=== PATIENT | female | born 1960 | race Caucasian/White ===

== ENCOUNTER 2016-11-10 17:47 | Emergency (ER) | payer OTHER ==
[~2016-11-10] VITALS: Ht 165.1 cm; Wt 61.2 kg
--- NOTE | 2016-11-10 17:48 | NUR ---
ARRIVAL PT ARRIVED VIA WHEELCHAIR TO ER 1 C/O [place] BITE. PT CALLED AHEAD STATING PT WAS BIT BY [facility] [place] AND [facility] MARKED SITE AND AREA OF SWELLING. UPON ARRIVAL TO ER NO SWELLING OR PUNCTURE SITE NOTED TO PT ANKLE. PT DENIES ANY PAIN. NO ACUTE DISTRESS NOTED. EPD AT BEDSIDE.
[2016-11-10] MEDS ORDERED: [UNRECOGNIZED DRUG - OTHER] ONE (17:50)
[2016-11-10 17:58] VITALS: BP 146/84
--- NOTE | 2016-11-10 18:07 | ER.PDOC ---
General Chief Complaint: Animal Bite Stated Complaint: POSS SNAKE BITE Time seen by MD: 17:45 Source: patient Exam Limitations: no limitations History of Present Illness Initial Comments Pt who saw a rattle snake, but, is not sure that she was bitten by it Onset: just prior to arrival Where: street Animal: other (snake) Animal Immunizations: UTD Animal Disposition: Animal Captured Context of Attack: "unprovoked" attack Severity of Injury: other (touched) Injury Location: lower extremity Past Medical History Medical History: no pertinent history Surgical History: appendectomy, cholecystectomy LMP (females 10-50): postmenopause Social History Smoking: less than 1 pack/day Alcohol Use: occassionally Drug Use: none Review of Systems Constitutional: see HPI Eyes: see HPI Ears: see HPI Nose: see HPI Mouth: see HPI Throat: see HPI Respiratory: see HPI Cardiovascular: see HPI Gastrointestinal: see HPI Genitourinary: see HPI Musculoskeletal: see HPI Skin: see HPI Psychiatric/Neurological: see HPI Physical Exam General Appearance: alert, no distress Skin: intact Neuro/Vascular/Tendon: no vascular compromise, sensation nml, oriented x3, nml ROM, CN's nml as tested Psych: mood/affect nml HEENT: atraumatic, PERRL, eye lids/conjun nml, ENT nml external inspect. Neck: uninjured, nml inspection Resp/CVS: chest non-tender, breath sounds nml, heart sounds nml, reg. rate & rhythm Abdomen: nml inspection, non-tender Back: nml inspection Extremities: nml inspection, no infection, ROM nml Course Blood Pressure Systolic: 146 Blood Pressure Diastolic: 84 Blood Pressure Mean: 104 Departure Time of Disposition: 18:10 Disposition: 01 HOME, SELF-CARE Impression: Primary Impression: Snake bites Additional Impression: Snake bite Condition: Stable Problem Qualifiers LI MCDANIEL MD November 10, 2016 18:07
== END 2016-11-10 18:28 | disposition home or self-care (01) ==
LOC: ER 17:47
DX: T63.011A Toxic effect of rattlesnake venom, accidental (unintentional), initial encounter (principal); F17.200 Nicotine dependence, unspecified, uncomplicated; Y92.410 Unspecified street and highway as the place of occurrence of the external cause
CPT/HCPCS: 99283; J0840